=== PATIENT | male | born 1980 | race Caucasian/White ===

== ENCOUNTER 2022-11-29 12:23 | Outpatient (CLI) | payer BC, SELFPAY ==
--- NOTE | ~2022-11-29 | NM_ITS ---
EXAMINATION: GRACIELA estrella renal scan DATE: 11/29/2022 14:12 INDICATION: Right hydronephrosis. TECHNIQUE: 8.1 mCi Tc-99m MAG3 was administered IV. 40 mg furosemide was administered IV immediately afterward. The patient was scanned in the supine position. A posterior abdominal radionuclide angiog lexus was obtained. A subsequent time course of static images of the kidneys, ureters, and bladder was obtained. COMPARISON: None FINDINGS: The posterior abdominal radionuclide angiogram and sequential static images show normal siz e, position, and morphology of the kidneys. Peak renal parenchymal uptake was 5 min in right kidney a nd 2 min in left kidney (normal peak 3-5 minutes). The relative early renal uptake was 46% on the ri ght and 54% on the left (<40% is abnormal). No abnormalities of the ureters or bladder are seen. T1/2 for clearance of activity from the right kidney and proximal collecting system was 13 minutes. T1/2 for clearance of activity from the left kidney and proximal collecting system was 5 minutes. Notes on interpretation: T1/2 <10 minutes is normal, 10-15 minutes is low grade obstruction of questi onable clinical significance, 15-20 minutes is partial obstruction that is likely clinically signific ant, >20 minutes is high grade obstruction. Note that false positives may be seen with supine positio siomara, dehydration, severely dilated nonobstructed kidney, atonic collecting system, poor renal functi on, and chronic furosemide use. IMPRESSION: 1. Symmetric kidney function. 2. Mildly delayed contrast clearance from right kidney, consistent with low-grade obstruction of que stionable clinical significance. Reviewed, dictated and finalized at location A. IMPRESSION: 1. Symmetric kidney function. 2. Mildly delayed contrast clearance from right kidney, consistent with low-gr scott obstruction of questionable clinical significance.
== END 2022-11-29 12:24 | disposition home or self-care (01) ==
PROVIDERS: PCP Registered Nurse; Visit Provider Urology
DX: N13.30 Unspecified hydronephrosis (principal)
CPT/HCPCS: 78708; A9562; J1940

== ENCOUNTER 2022-11-30 13:12 | Outpatient (CLI) | payer BC, SELFPAY ==
--- NOTE | 2022-11-30 13:29 | ECG_ITS ---
Measurements Intervals [place] Rate: 62 P: 43 AL: 214 QRS: 52 QRSD: 106 T: 22 QT: 398 QTc: 405 Interpretive Statements SINUS RHYTHM WITH FIRST DEGREE AV BLOCK INCOMPLETE RIGHT BUNDLE BRANCH BLOCK [90+ ms QRS DURATION, TERMINAL R IN V1/V2, 40+ ms S IN I/aVL/V4/V5/V6] NO PREVIOUS ECG AVAILABLE FOR COMPARISON Electronically Signed On 11-30-2022 14:15:27 CDT by Sudha Villarreal M.D.
[2022-11-30 14:04] LABS: Lithium 0.5 mmol/L (0.6-1.2)
== END 2022-11-30 13:13 | disposition home or self-care (01) ==
PROVIDERS: Anesthesiology; PCP Registered Nurse; Visit Provider Urology
DX: Z01.818 Encounter for other preprocedural examination (principal); N13.30 Unspecified hydronephrosis; F17.200 Nicotine dependence, unspecified, uncomplicated; Z79.899 Other long term (current) drug therapy; R94.31 Abnormal electrocardiogram [ECG] [EKG]; I45.19 Other right bundle-branch block; I44.0 Atrioventricular block, first degree
CPT/HCPCS: 36415; 80178; 87086; 93005

== ENCOUNTER 2022-12-06 01:56 | Day surgery (SDC) | payer BC, SELFPAY ==
[2022-11-30 12:27] VITALS: BMI 25.7
--- NOTE | 2022-11-30 12:35 | PC.NURSE ---
Report to the Outpatient Waiting Room, entrance under the green pavilion located off [facility], at time 9:00 on date 12/06/22. Planned Procedure Time: 11:00. Time changes happen often and if your time is changed the preop area will call you the afternoon before. - You and your visitor will be asked to self-screen and do not enter if you have any COVID symptoms. - A mask is optional within the hospital at this time. Patients may have clear liquids (water, carbonated beverages, clear teas, apple juice) until 3 hours prior to surgery (8:00) with a maximum of 20 ounces. - No food from midnight until time of surgery Take the following medications with a SIP of water the morning of surgery: ALPRAZOLAM DO NOT STOP ANY OF YOUR OTHER PRESCRIPTION MEDICATIONS PRIOR TO SURGERY ?EXCEPT THE FOLLOWING Medications to discontinue per physician: VITAMINS/SUPPLEMENTS Date to take last dose: 12/02/22 Please no make-up, nail mozambican, hairspray, perfume, deodorant, or body powder the day of surgery. No jewelry (including any body piercings) or valuables the day of surgery, leave them at home. Please take a shower or bath the night before, or the morning of, surgery with an antibacterial soap. Wear comfortable, loose fitting clothing. - Jewelry must be removed prior to entering the operating room. Rings and piercings that are not removed may be cut off. - The hospital will not accept responsibility for valuables. - Please leave all valuables, including medications, at home the day of surgery. If you are going home after surgery, a licensed pedicab driver must drive you home. - NO public transportation without another adult if you receive anesthesia. - We recommend that an adult stay with you for 24 hours following discharge. - We also recommend that you do not drive, make important decision, drink alcoholic beverages, or take any drugs that were not prescribed by your health care provider for at least 24 hours after your discharge time. Follow any additional instructions given to you from your surgeon. If you or anyone in your household have experienced Covid symptoms in the past week, please notify your surgeon or the nurse liaison at the phone number below for possible testing. Telephone instructions given to PT - AIRAM JIMENEZ and asked if any additional questions and then verbalized understanding. Patient advised to call surgeon office or pre surgery nurse liaison [phone] if any additional questions.
--- NOTE | 2022-12-05 14:36 | P.PNAN_ITS ---
Anes - Initial Pre Proc Eval Procedure: Operation Date: 12/06/22 11:00 Proposed Procedures p Cystoscopy, Right Ureteroscopy, Right Retrograde Pyelogram, Possible Balloon Dilation, Possible Right Stent Placement - Morris Deng MD Date/Time: 12/05/22 14:36 Surgeon: Morris Deng MD Pre Op Diagnosis: Hydronephrosis Patient Data Age: 42 Gender: M Height: 1.88 m Weight: 90.75 kg Allergies Allergy/AdvReac Type Severity Reaction Status Date / Time NSAIDS (Non-Steroidal Allergy Other Verified 12/06/22 08:58 Anti-Inflamma Home Medications Medication Instructions Recorded Confirmed Type Lactobac 51-Bifidobac 1 cap PO DAILY 11/30/22 11/30/22 History 3-L.lactis-S.thermophilus 4 billion cell capsule (Daily Probiotic (10 Strains)) alprazolam 1 mg tablet 1 mg PO QID PRN Anxiety 11/30/22 11/30/22 History lithium carbonate 450 mg 1,350 mg PO HS 11/30/22 11/30/22 History tablet,extended release multivitamin 1 tablet PO DAILY 11/30/22 11/30/22 History Patient hx anesthesia problems: none Family hx anesthesia problems: none Results Review: All pre-operative results and documents have been reviewed as part of the pre- operative evaluation. [facility] Past Medical History Medical History (Updated 12/06/22 @ 09:40 by Devon Latham, ) Anxiety Bipolar disorder First degree AV block Incomplete right bundle branch block Pancreatitis Social History Social History (System 11/30/22 @ 12:44 by Elena Banks) Smoking packs per day: 1 Smoking cigarettes per day: 20.0 Years smoked: 20 Smoking pack-years: 20.00 Smoking status: Current every day smoker Tobacco type: cigarettes Alcohol intake: never Substance use: never Substance use type: does not use Living arrangements: alone Spiritual care concerns: No Anes - Eval Final PreProcedure Day of Procedure 12/05/22 14:36 Patient weight: overweight Heart: regular rate and rhythm Lungs: clear to auscultation Airway: Mallampati scale class II Neurological: alert and oriented Last oral intake: >/= 8 hours ASA classification: III Emergent: no Anesthetic plan: proceed Anesthesia type and monitoring: general LMA and standard monitoring Results Review: All pre-operative results and documents have been reviewed as part of the pre- operative evaluation. Informed Consent: The patient's anesthetic plan and its attendant risks and benefits were discussed with the patient/family/POA. Questions were solicited and answers provided to the satisfaction of the patient/family/POA.
--- NOTE | ~2022-12-06 | XR_ITS ---
EXAMINATION: XR retrograde pyelogram RT DATE: 12/06/2022 11:10 INDICATION: Right hydronephrosis. Right-sided cystoscopy, ureteroscopy and retrograde pyelogram. TECHNIQUE: 9 fluoroscopic images of the abdomen and pelvis were obtained during procedure performed elio Deng. Radiologist was not present for the imaging or procedure. The amount of fluoroscopy t boogie used during this procedure was 2.4 minutes. COMPARISON: None. FINDINGS: Telephone Directory Distributor Driver fluoroscopic images are unremarkable. Retroaortic contrast injection into the right ureter demo nstrates an short segmental mild stricture in the distal right ureter with smooth mucosal contour. Th ere is an additional more prominent stricture at the right ureteropelvic junction with mild to modera te right hydronephrosis. IMPRESSION: 1. Mild to moderate right hydronephrosis likely related to ureteropelvic junction obstruction. See pr ocedure note for further detail. Reviewed, dictated and finalized at location A. IMPRESSION: 1. Mild to moderate right hydronephrosis likely related to ureteropelvic juncti on obstruction. See procedure note for further detail.
[2022-12-06 09:08] VITALS: BP 121/63; PULSE 72; RESP 16; TEMP 36.3; O2SAT 100
--- NOTE | 2022-12-06 10:22 | WPDHPUPDATE1 ---
History and Physical Update Update Date/Time: 12/06/22 10:22 History and Physical has been reviewed, including an updated exam of the patient. There are NO changes in the patient's condition. Risks, benefits, and alternatives have been discussed and questions answered. Patient agrees to proceed with procedure. Proceed with cystoscopy, right retrograde, right ureteroscopy with possible dilation stent placement
[2022-12-06] MEDS: LACTATED RINGERS 1,000 ML 30 ML IV CONT (10:37)
[2022-12-06] MEDS: ceFAZolin 2 GM/D5W 50 ML 2 GM/50 ML BAG IVPB (10:38)
[2022-12-06] MEDS: LIDOCAINE HCL 2% GEL UROJET 10 ML PKG MUCOUS MEM (10:58)
--- NOTE | 2022-12-06 11:09 | P.OP_ITS ---
Procedure Note - Detailed Date of Procedure 12/06/22 Pre-op Diagnosis Right hydronephrosis Post-op Diagnosis Same Procedure Performed Cystoscopy, right retrograde, right ureteroscopy Surgeon Morris Deng MD Anesthesia General Description of Procedure Patient was taken to the operative suite correctly identified. Once anesthesia was obtained was placed in dorsal lithotomy position prepped and draped in sterile fashion. Twenty-two Portuguese scope was inserted in the bladder. There is no tumors noted. Prostate is nonobstructing. The right ureteral orifice was cannulated with a ureteral catheter and a pyelogram was performed. He had some mild narrowing in the distal ureter and then what appears to be a classic UPJ obstruction. At this point a wire was passed up into the kidney. A 10 dilator were used to dilate the distal intramural orifice. A flexible ureteral scope was then passed and was able to make it up to the UPJ area. I could not manipulate the scope through this area. Given that his renal function is normal and he has been asymptomatic and did not pursue any sort of balloon dilation or other intervention. I did placed ureteral catheter back into the renal pelvis and aspirated out approximately 60 cc of contrast as well as a urine and irrigation. Since it was very minimal manipulation I did not stent him at this time. 2% viscous lidocaine was inserted into the urethra patient is taken recovery stable condition. The plan is to see how he does clinically and then repeat a renal scan 6 months to 1 years time. If he develops pain or has loss of renal function that possibly a pyeloplasty would be indicated Estimated Blood Loss 0 Drains No Packing No Pathology None sent Complications No immediate complications Condition Stable Disposition PACU
[2022-12-06 11:15] VITALS: BP 120/91; PULSE 69; RESP 12; TEMP 36.7; O2SAT 100
[2022-12-06 11:30] VITALS: BP 116/79; PULSE 48; RESP 12; O2SAT 100
[2022-12-06 11:45] VITALS: BP 109/68; PULSE 50; RESP 16; O2SAT 100
[2022-12-06 11:50] VITALS: BP 114/77; PULSE 50; RESP 16
[2022-12-06 12:20] VITALS: BP 125/69; PULSE 53; RESP 16
== END 2022-12-06 12:33 | disposition home or self-care (01) ==
PROVIDERS: PCP Registered Nurse; Visit Provider Urology
PROC: (CPT 52352; principal; 2022-12-06 11:00)
DX: N13.30 Unspecified hydronephrosis (principal); F31.9 Bipolar disorder, unspecified; F41.9 Anxiety disorder, unspecified; I45.10 Unspecified right bundle-branch block; I44.0 Atrioventricular block, first degree; F17.210 Nicotine dependence, cigarettes, uncomplicated
CPT/HCPCS: 52351; 74420; C1758; C1769; J0690; J1100; J2250; J2405; J2704; J3010; J7120; Q9966